=== PATIENT | male | born 1985 | race Hispanic/Latino ===

== ENCOUNTER 2017-07-02 18:08 | Emergency (ER) | payer OTHER ==
[2017-07-02 18:16] VITALS: BP 135/80; PULSE 95; RESP 16; TEMP 98.1; O2SAT 99
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
== END 2017-07-02 20:04 | disposition home or self-care (01) ==
LOC: H.ER 18:08
DX: M79.601 Pain in right arm (principal); V03.10XA Pedestrian on foot injured in collision with car, pick-up truck or van in traffic accident, initial encounter; Y92.410 Unspecified street and highway as the place of occurrence of the external cause

== ENCOUNTER 2018-03-07 03:38 | Emergency (ER) | payer OTHER ==
[2018-03-07 03:51] VITALS: BP 124/76; PULSE 62; RESP 17; TEMP 98.9; O2SAT 98
[2018-03-07] MEDS ORDERED: Amoxicillin-Clav 875-125 mg Tab PO STA (03:59)
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
== END 2018-03-07 04:30 | disposition home or self-care (01) ==
LOC: H.ER 03:38
DX: S01.551A Open bite of lip, initial encounter (principal); W54.0XXA Bitten by dog, initial encounter; Y92.89 Other specified places as the place of occurrence of the external cause